=== PATIENT | male | born 1960 | race African-American/Black ===

== ENCOUNTER 2017-10-16 11:45 | Emergency (ER) | payer MEDICARE, MEDICAID ==
[~2017-10-16] VITALS: Ht 185.4 cm; Wt 104.5 kg
[2017-10-16 11:48] VITALS: BP 204/121; Ht 185.4 cm; Wt 104.5 kg
[2017-10-16] MEDS ORDERED: RENVELA800 MG PO (11:51)
[2017-10-16] MEDS ORDERED: NIFEDIPINE ER90 MG PO (11:51)
[2017-10-16] MEDS ORDERED: MELLARIL25 MG PO (11:53)
[2017-10-16] MEDS ORDERED: DEPAKENE250 MG PO (11:53)
[2017-10-16] MEDS ORDERED: KIONEX PO (11:53)
[2017-10-16] MEDS ORDERED: VENTOLIN HFA18 GM INH (11:54)
[2017-10-16] MEDS ORDERED: HYDROCODON-ACE1 EAC7 PO (11:55)
[2017-10-16] MEDS ORDERED: HYDRALAZINE HCL25 MG PO (11:55)
[2017-10-16] MEDS ORDERED: LEVAQUIN750 MG PO (11:55)
[2017-10-16] MEDS ORDERED: DIALYSIS (11:56)
[2017-10-16] MEDS ORDERED: ZESTRIL40 MG PO (11:56)
[2017-10-16] MEDS ORDERED: NOVOLIN R100 U/ML SQ (11:57)
[2017-10-16] MEDS ORDERED: ACETAMINOPHEN500 M1 PO (11:58)
[2017-10-16 12:39] LABS: BASOPHILS 0.6 % (0-2); HEMATOCRIT 32.9 % (42.0-54.0); HEMOGLOBIN 10.5 g/dL (13.5-17.5); IMMATURE GRANULOCYTES 0.2 % (0-5); MCH 27.3 pg (26.0-34.0); MCHC 31.9 g/dL (31.0-37.0); MCV 85.5 fL (80.0-100.0); MEAN PLATELET VOLUME 10.4 fL (7.4-10.4); MONOCYTES 8.9 % (2-11); NEUTROPHILS 65.3 % (40-80); PLATELET COUNT 152 10x3/uL (130-400); RBC 3.85 10x6/uL (4.20-6.10); RDW 18.3 % (11.5-14.5); WBC 5.4 10x3/uL (4.8-10.8)
[2017-10-16 12:52] LABS: ALBUMIN 3.2 g/dL (3.4-5.0); ALKALINE PHOSPHATASE 167 U/L (46-116); ALT (SGPT) 17 U/L (10-68); BILIRUBIN - TOTAL 0.45 mg/dL (0.2-1.3); CALC OSMOLALITY 286 mosm/kg (275-300); CALCIUM 8.6 mg/dL (8.5-10.1); CARBON DIOXIDE 29.4 mmol/L (21.0-32.0); CHLORIDE - SERUM 102 mmol/L (98-107); GLUCOSE 84 mg/dL (74-106); POTASSIUM - SERUM 5.7 mmol/L (3.5-5.1); PROTEIN - SERUM 7.1 g/dL (6.4-8.2); SODIUM 139 mmol/L (136-145); UREA NITROGEN 40 mg/dL (7-18); eGFR NON AFRICAN AMERICAN 6 mL/min (90-120)
[2017-10-16 13:17] LABS: CREATINE KINASE 67 UL (21-232)
[2017-10-16 13:18] LABS: TROPONIN-I 0.103 ng/mL (0.000-0.060)
[2017-10-16] MEDS ORDERED: DEPAKENE 2250 MG/5 M PO ×2 (23:34→23:35)
[2017-10-16] MEDS ORDERED: CATAPRES0.3 MG PO (23:37)
[2017-10-17] MEDS ORDERED: DIALYSIS (10:23)
[2017-11-28 16:09] VITALS: Ht 185.4 cm; Wt 104.5 kg
== END 2017-10-16 12:30 | disposition left against medical advice (07) ==
LOC: D.ER 11:45
PROVIDERS: Family Medicine
DX: N18.9 Chronic kidney disease, unspecified (principal); I50.9 Heart failure, unspecified; E78.5 Hyperlipidemia, unspecified; I44.60 Unspecified fascicular block

== ENCOUNTER 2017-10-16 14:43 | Inpatient (IN) | payer MEDICARE ==
[~2017-10-16] VITALS: Ht 185.4 cm; Wt 104.5 kg
[~2017-10-16 14:43] MED LIST: ACETAMINOPHEN500 M1 PO; DEPAKENE250 MG PO; DIALYSIS; HYDRALAZINE HCL25 MG PO; HYDROCODON-ACE1 EAC7 PO; KIONEX PO; LEVAQUIN750 MG PO; MELLARIL25 MG PO; NIFEDIPINE ER90 MG PO; NOVOLIN R100 U/ML SQ; RENVELA800 MG PO; VENTOLIN HFA18 GM INH; ZESTRIL40 MG PO
[2017-10-16 20:30] VITALS: BP 139/89
[2017-10-16 22:48] VITALS: BP 206/115; Ht 185.4 cm; Wt 104.5 kg
[2017-10-16] MEDS ORDERED: DEPAKENE 2250 MG/5 M PO ×2 (23:34→23:35)
[2017-10-16] MEDS ORDERED: CATAPRES0.3 MG PO (23:37)
[2017-10-17 04:30] VITALS: BP 187/70
[2017-10-17 08:57] VITALS: BP 207/117
[2017-10-17] MEDS ORDERED: DIALYSIS (10:23)
[2017-10-17 12:33] VITALS: BP 158/77
== END 2017-10-17 12:53 | DRG 291 ==
LOC: D.ER 14:43 → OBSVTIME 15:54 → D.EDHOLD 15:54 → D.M2 17:25
PROC: 5A1D70Z Performance of Urinary Filtration, Intermittent, Less than 6 Hours Per Day (ICD-10-PCS; principal; 2017-10-16)
DX: I13.2 Hypertensive heart and chronic kidney disease with heart failure and with stage 5 chronic kidney disease, or end stage renal disease (principal); N18.6 End stage renal disease; E11.22 Type 2 diabetes mellitus with diabetic chronic kidney disease; I50.9 Heart failure, unspecified; Z99.2 Dependence on renal dialysis; E87.5 Hyperkalemia; R06.03 Acute respiratory distress

== ENCOUNTER 2017-10-19 11:18 | Emergency (ER) | payer MEDICARE, MEDICAID ==
[~2017-10-19] VITALS: Ht 185.4 cm; Wt 104.5 kg
[~2017-10-19 11:18] MED LIST changes: +CATAPRES0.3 MG PO; +DEPAKENE 2250 MG/5 M PO
[2017-10-19 12:39] LABS: BASOPHILS 0.2 % (0-2); EOSINOPHILS 2.6 % (0-7); HEMATOCRIT 32.5 % (42.0-54.0); HEMOGLOBIN 10.5 g/dL (13.5-17.5); IMMATURE GRANULOCYTES 0.2 % (0-5); LYMPHOCYTES 22.9 % (15-50); MCH 27.3 pg (26.0-34.0); MCHC 32.3 g/dL (31.0-37.0); MCV 84.6 fL (80.0-100.0); MEAN PLATELET VOLUME 9.9 fL (7.4-10.4); MONOCYTES 7.9 % (2-11); NEUTROPHILS 66.2 % (40-80); PLATELET COUNT 139 10x3/uL (130-400); RBC 3.84 10x6/uL (4.20-6.10); WBC 4.9 10x3/uL (4.8-10.8)
[2017-10-19 13:06] LABS: ALBUMIN 3.1 g/dL (3.4-5.0); BILIRUBIN - TOTAL 0.52 mg/dL (0.2-1.3); CALCIUM 8.3 mg/dL (8.5-10.1); CARBON DIOXIDE 30.9 mmol/L (21.0-32.0); CREATININE - SERUM 11.7 mg/dL (0.6-1.3); MAGNESIUM - SERUM 2.7 mg/dL (1.8-2.4); PHOSPHOROUS 7.3 mg/dL (2.5-4.9); PROTEIN - SERUM 6.9 g/dL (6.4-8.2)
[2017-10-19 13:07] LABS: ANION GAP 15.1 mmol/L (8-16)
[2017-10-19 15:30] VITALS: Ht 185.4 cm; Wt 104.5 kg
[2017-10-19 19:58] VITALS: BP 177/103
== END 2017-10-19 19:58 | disposition home or self-care (01) ==
LOC: D.ER 11:18
PROVIDERS: Family Medicine
DX: N18.6 End stage renal disease (principal); Z99.2 Dependence on renal dialysis; E11.9 Type 2 diabetes mellitus without complications; F17.200 Nicotine dependence, unspecified, uncomplicated

== ENCOUNTER 2017-10-21 13:28 | Emergency (ER) | payer MEDICARE ==
[~2017-10-21] VITALS: Ht 185.4 cm; Wt 104.5 kg
[2017-10-21 13:36] VITALS: Ht 185.4 cm; Wt 104.5 kg
[2017-10-21 14:35] LABS: ALBUMIN 3.2 g/dL (3.4-5.0); BILIRUBIN - TOTAL 0.48 mg/dL (0.2-1.3); CALCIUM 8.7 mg/dL (8.5-10.1); CARBON DIOXIDE 30.8 mmol/L (21.0-32.0); CREATININE - SERUM 12.4 mg/dL (0.6-1.3); POTASSIUM - SERUM 5.8 mmol/L (3.5-5.1); PROTEIN - SERUM 7.3 g/dL (6.4-8.2)
[2017-10-21 15:03] LABS: HEMATOCRIT 32.4 % (42.0-54.0); HEMOGLOBIN 10.4 g/dL (13.5-17.5); LYMPHOCYTES 24.3 % (15-50); MCH 27.1 pg (26.0-34.0); MCHC 32.1 g/dL (31.0-37.0); MCV 84.4 fL (80.0-100.0); MEAN PLATELET VOLUME 10.2 fL (7.4-10.4); NEUTROPHILS 65.8 % (40-80); PLATELET COUNT 145 10x3/uL (130-400); RBC 3.84 10x6/uL (4.20-6.10); RDW 18.6 % (11.5-14.5); WBC 4.4 10x3/uL (4.8-10.8)
== END 2017-10-21 16:38 | disposition left against medical advice (07) ==
LOC: D.ER 13:28
PROVIDERS: Family Medicine
DX: N18.9 Chronic kidney disease, unspecified (principal); Z99.2 Dependence on renal dialysis; E11.9 Type 2 diabetes mellitus without complications; F17.200 Nicotine dependence, unspecified, uncomplicated

== ENCOUNTER 2017-11-28 16:00 | Emergency (ER) | payer MEDICARE ==
[2017-11-28 16:09] VITALS: Ht 185.4 cm
[2017-11-28 17:18] LABS: BASOPHILS 0.2 % (0-2); EOSINOPHILS 2.9 % (0-7); HEMATOCRIT 25.8 % (42.0-54.0); HEMOGLOBIN 7.8 g/dL (13.5-17.5); IMMATURE GRANULOCYTES 0.2 % (0-5); LYMPHOCYTES 19.3 % (15-50); MCH 26.2 pg (26.0-34.0); MCHC 30.2 g/dL (31.0-37.0); MCV 86.6 fL (80.0-100.0); MONOCYTES 12.9 % (2-11); NEUTROPHILS 64.5 % (40-80); PLATELET COUNT 72 10x3/uL (130-400); RBC 2.98 10x6/uL (4.20-6.10); RDW 16.4 % (11.5-14.5); WBC 4.1 10x3/uL (4.8-10.8)
[2017-11-28 17:29] LABS: APTT 38.8 SECONDS (22.8-39.4); INR 1.14 (0.85-1.17); PROTIME 14.2 SECONDS (11.6-15.0)
[2017-11-28 17:33] LABS: % SATURATION 74 % (15-55); IRON 143 ug/dl (35-150); TOTAL IRON BIND CAPACITY 191 ug/dl (260-445)
[2017-11-28 17:34] LABS: UNSAT IRON BIND CAPACITY 48 ug/dl (150-375)
[2017-11-28 17:36] LABS: ALBUMIN 2.8 g/dL (3.4-5.0); ANION GAP 4.6 mmol/L (8-16); BILIRUBIN - TOTAL 0.36 mg/dL (0.2-1.3); CALCIUM 9.1 mg/dL (8.5-10.1); CARBON DIOXIDE 32.6 mmol/L (21.0-32.0); CREATININE - SERUM 9.4 mg/dL (0.6-1.3); POTASSIUM - SERUM 4.2 mmol/L (3.5-5.1); PROTEIN - SERUM 6.3 g/dL (6.4-8.2)
[2017-11-28 18:00] LABS: PLATELET ESTIMATE DECREASED
[2017-11-28 20:00] VITALS: BP 183/96
== END 2017-11-28 19:45 | disposition other institution (70) ==
LOC: D.ER 16:00
PROVIDERS: Emergency Medicine
DX: N18.6 End stage renal disease (principal); D63.1 Anemia in chronic kidney disease; Z99.2 Dependence on renal dialysis; I51.7 Cardiomegaly; E87.70 Fluid overload, unspecified; E11.9 Type 2 diabetes mellitus without complications; F17.200 Nicotine dependence, unspecified, uncomplicated